=== PATIENT | female | born 1995 | race Hispanic/Latino ===

== ENCOUNTER → 2018-11-27 | Outpatient (REF) | payer OTHER ==
[2018-11-27 23:06] LABS: INFLUENZA A AMPLIFICATION NEGATIVE (NEGATIVE); INFLUENZA B AMPLIFICATION NEGATIVE (NEGATIVE)
== END ==
LOC: M LAB REF 10:21
PROVIDERS: ATTEND Physician Assistant
DX: J11.1 Influenza due to unidentified influenza virus with other respiratory manifestations (principal)

== ENCOUNTER → 2021-06-16 | Outpatient (CLI) | payer OTHER ==
--- NOTE | 2021-06-16 15:40 | REP ---
INDICATION: PREG, GROWTH. COMPARISON: None. TECHNIQUE: Real-time sonographic evaluation of the gravid uterus performed. FINDINGS: Estimated gestational age is32 weeks 0 days, EDC 08/11/2021. Today's measurements indicate appropriate growth. Presentation: Cephalic Placenta anterior to the right, grade 1, without evidence of placenta previa. heart rate is recorded at 141 beats per minute. Amniotic fluid is subjectively normal. The cervix is not well visualized due to shadowing from the cranium. Biometry chart: BPD: 83 mm, 33 weeks 3 days, 70th percentile. HC: 296 mm, 32 weeks 5 days, 61st percentile AC: 273 mm, 31 weeks 3 days, 41st percentile Femur length: 63 mm, 32 weeks 4 days, 59th percentile HC to AC ratio: 1.08, normal range 0.95-1.14. Estimated weight: 1893g, 41st percentile. SD ratio umbilical artery 2.36, normal 1.84-3.87. RI 0.58, normal 0.50-0.75. The visualized osseous structures today include the cranium, upper lip, four-chamber heart, stomach, kidneys, bladder and spine which are all grossly unremarkable. An echogenic focus in the left ventricle of the heart is likely related to chordae tendineae. Structures of the brain, the facial profile and ventricular outflow tracts are not well visualized. IMPRESSION: Viable single intrauterine gestation as above. <Electronically signed by Alejandro Miller > 06/16/21 [id number]
== END ==
LOC: M RAD 14:27
PROVIDERS: ATTEND Registered Nurse
DX: Z36.89 Encounter for other specified antenatal screening (principal); Z3A.32 32 weeks gestation of pregnancy

== ENCOUNTER 2021-07-10 05:49 | Inpatient (IN) | payer OTHER ==
[2021-07-10] VITALS (14 sets, daily range): BP systolic 118–177; BP diastolic 58–84
[~2021-07-10] VITALS: Ht 172.7 cm; Wt 103.1 kg
[2021-07-10] MEDS ORDERED: PRENTAB9 PO (06:05)
[2021-07-10] MEDS ORDERED: SYNT88TA2 PO (06:05)
[2021-07-10] MEDS ORDERED: HOME MED LIST COMPLETE! XX SCH (06:10)
[2021-07-10] MEDS: LR 1,000 ML IV SCH ×2 (06:35→16:09)
[2021-07-10] MEDS ORDERED: OXYTOCIN 30 UNITS IN 0.9% NaCl 500ML IV BAG (J2590) As Ordered ONE (06:45)
[2021-07-10] MEDS ORDERED: LIDOCAINE 1% MDV 20ML VIAL As Ordered ONE (06:48)
[2021-07-10 06:52] LABS: HEMATOCRIT 42.2 % (36.0-47.0); HEMOGLOBIN 13.7 g/dl (12.0-15.5); MEAN CORPUSCULAR HEMOGLOBIN 26.7 pg (27.0-33.0); MEAN CORPUSCULAR HGB CONC 32.5 g/dl (32.0-36.5); MEAN CORPUSCULAR VOLUME 82.3 fl (80.0-96.0); PLATELET COUNT, AUTOMATED 193 10^3/uL (150-450); RED BLOOD COUNT 5.13 10^6/uL (4.00-5.40); WHITE BLOOD COUNT 9.5 10^3/uL (4.0-10.0)
[2021-07-10] MEDS ORDERED: MORPHINE 4 MG/ML 1ML VIAL/SYRINGE (J2270) As Ordered ONE (07:51)
[2021-07-10 08:18] LABS: CORD GAS ABE A -12.5; CORD GAS ABE V -10.5; CORD GAS HCO3 A 17.3 MEQ/L; CORD GAS O2 SAT V 86.1 %; CORD GAS PCO2 A 55.6 mmHg; CORD GAS PCO2 V 42.9 mmHg; CORD GAS PH A 7.112 UNITS; CORD GAS PH V 7.215 UNITS; CORD GAS PO2 A 53.7 mmHg; CORD GAS PO2 V 47.4 mmHg; CORD GAS SBC A 14.7 MEQ/L; CORD GAS SBC V 16.1 MEQ/L; CORD GAS TCO2 A 19.1 MEQ/L; CORD GAS TCO2 V 18.3 MEQ/L
[2021-07-10] MEDS ORDERED: METHYLERGONOVINE MALEATE 0.2 MG/ML VIAL (J2210) IM PRN (08:30)
[2021-07-10] MEDS ORDERED: OXYTOCIN INJ 10 UNITS/ML VIAL (J2590) IV PRN (08:30)
[2021-07-10] MEDS ORDERED: DIBUCAINE 1% OINTMENT 30GM TOP PRN (08:30)
[2021-07-10] MEDS ORDERED: OXYTOCIN DRIP 30 UNITS in IV 1 EA IV PRN ×6 (08:30)
[2021-07-10] MEDS ORDERED: ONDANSETRON 4MG/2ML VIAL IV PRN (08:30)
[2021-07-10] MEDS ORDERED: OXYTOCIN DRIP 30 UNITS in IV 1 EA IV SCH (08:30)
[2021-07-10] MEDS ORDERED: OXYTOCIN INJ 10 UNITS/ML VIAL (J2590) IM PRN (08:30)
[2021-07-10] MEDS ORDERED: LIDOCAINE 1% MDV 20ML VIAL INFIL PRN (08:30)
[2021-07-10] MEDS ORDERED: ACETAMINOPHEN 500 MG TAB PO PRN (08:30)
[2021-07-10] MEDS ORDERED: CARBOPROST TROMETHAMINE 250 MCG/ML AMP IM PRN (08:30)
[2021-07-10] MEDS ORDERED: RHOGAM 300 MCG (1500 IU) INJ (J2790) IM SCH (08:30)
--- NOTE | 2021-07-10 08:35 | HPEPDOC ---
Obstetrical History & Physical General Date of Admission Jul 10, 2021 at 06:21 History of Present Illness 25 YO G1 @ 35+3 Who presents in active labor and precipitously delivered. she was GBS unknown and did not get Penicilin due to delivering precipitously. Past Medical History Allergies Coded Allergies: No Known Allergies (Unverified , 07/10/21) Medications Scheduled Levothyroxine Sodium (Synthroid) 88 Mcg Tablet, 88 MCG PO DAILY No.137/Iron/Folic Acd ( Vitamin Tablet) 1 Each Tablet, 1 TAB PO DAILY Physical Examination Physical Examination GENERAL: Alert and oriented times three. BREAST: . ABDOMEN: Gravid and non-tender to touch. FETUS: Is vertex (VTX) by sterile vaginal examination (SVE), fetus is vertex (VTX) by Sean. HEART RATE: Regular rate and rhythm. LUNGS: Clear to auscultation (CTA). EXTREMITIES: No edema. No clonus. Deep tendon reflexes (DTRs) + . Vital Signs/I&O Vital Signs Date Time Temp Pulse Resp B/P (MAP) Pulse Ox O2 Delivery O2 Flow Rate FiO2 07/10/21 05:59 98.0 Laboratory Data 24H LABS Laboratory Tests 2 07/10/21 06:45: Nucleated Red Blood Cells % (auto) 0.0 07/10/21 07:43: Cord Arterial Blood pH 7.112, Cord Arterial Blood PCO2 55.6, Cord Arterial Blood PO2 53.7, Cord Arterial Blood HCO3 17.3, Cord Arterial Blood Total CO2 19.1, Cord Arterial Blood Base Excess -12.5, Cord Arterial Base Excess (Standard 14.7, Cord Arterial Bld Oxygen Saturation 87.0, Cord Venous Blood pH 7.215, Cord Venous Blood PCO2 42.9, Cord Venous Blood PO2 47.4, Cord Venous Blood HCO3 17.0, Cord Venous Blood Total CO2 18.3, Cord Venous Base Excess (Actual) -10.5, Cord Venous Base Excess (Standard) 16.1, Cord Venous Blood Oxygen Saturation 86.1 CBC/BMP Laboratory Tests 07/10/21 06:45 Assessment/Plan Assessment 25 YO G1 @ 35+3 Who presents in active labor and precipitously delivered. she was GBS unknown and did not get Penicilin due to delivering precipitously. Plan Transfer to maternity unit for care. CHANNING GUSTAFSON MD Jul 10, 2021 08:35
--- NOTE | 2021-07-10 08:41 | DNPDOC ---
[facility] Delivery Note Delivery Note DATE OF DELIVERY: [] PREDELIVERY DIAGNOSIS: 35-3/7 weeks' gestation and labor. POST DELIVERY DIAGNOSIS: Delivered. PROCEDURE: Spontaneous vaginal delivery CUT OFF SAWYER: Dr. Channing Gustafson ANESTHESIA: none ESTIMATED BLOOD LOSS: 300 mL. FINDINGS: 5 pound 0 ounce, 2260g female , Score 9/9, left foot cord, tight DELIVERY SUMMARY: She progressed to C/C/+2 and with good maternal effort delivered a viable . The infants head delivered OA and the head was allowed to spontaneously restitute SHARI. anterior shoulders delivered with gentle downward traction followed by posterior shoulder and corpus without difficulty. tight left foot cord noted. . Normal 3-vessel cord clamped x 2 and cut by FOB after 1 minute of delayed cord clamping. Spontaneous cry noted. I nfant placed on maternal abdomen for [id number] Cord blood obtained. Placenta delivered spontaneously and inspection of the placenta demonstrated that it was intact. The cord insertion appeared normal. The uterus was cleared of all clots and debris. Fundal massage until firm. 30 units of Pitocin administered per protocol and the patient required no additional uterotonics. Inspection of cervix, perineum, and vaginal wall revealed a periurethral laceration that was repaired with multiple figure of eight stitches and a hymenal ring tag that was repaired with a figure of eight stitch. . Repeat uterine examination noted uterine tone to be adequate and firm. Mom maribel stayed in L&D in hemodynamic stable condition upon my departure, Baby was taken to the NICU for prematurity per NICU Protocol. Sponge, lap and needle count correct x 2. [facility] [employer] Staff CHANNING GUSTAFSON MD Jul 10, 2021 08:41
[2021-07-10] MEDS ORDERED: MORPHINE 4 MG/ML 1ML VIAL/SYRINGE (J2270) IV ONE (09:40)
[2021-07-10] MEDS: IBUPROFEN 800 MG TAB PO PRN ×2 (10:15→20:20)
[2021-07-10] MEDS: PRENATAL VITAMINS CHEWABLE TABLET PO SCH (10:15)
[2021-07-10] MEDS: DOCUSATE SODIUM 100MG CAPSULE PO SCH ×2 (10:18→20:19)
[2021-07-10] MEDS: FERROUS SULFATE 325MG TAB PO SCH (11:57)
[2021-07-10] MEDS: LEVOTHYROXINE 88MCG TABLET (0.088 MG) PO SCH (16:08)
[2021-07-11] MEDS: LEVOTHYROXINE 88MCG TABLET (0.088 MG) PO SCH (05:52)
[2021-07-11 06:00] VITALS: BP 130/71
--- NOTE | 2021-07-11 07:25 | IPNPDOC ---
Progress Note Date of Service: Jul 11, 2021 Day#: 1 Progress Note SUBJECT:25 to PPD0 S/P Precipitous delivery at 35w3d of 5 pound 0 ounce, 2260g female infant, Score 9/9, left foot cord, tight, doing well this morning. She has been ambulating, voiding spontaneously without issue and tolerating regular diet. Breast feeding without issue. Reports lochia is like a normal period. baby was observed for a few hhours in the NICU and has not returned to nursery with parents. OBJECTIVE: VITAL SIGNS: Within normal limits, afebrile. Alert and oriented times three. Breath sounds clear to auscultation. Heart rate: Regular rate and rhythm, no murmurs, rubs or gallops. Abdomen: Fundus firm at U-2. Soft, NTTP. [Minimal] lochia. ASSESSMENT: 27 to PPD0 S/P Precipitous delivery at 35w3d of 5 pound 0 ounce, 2260g female , Score 9/9, left foot cord, tight, doing well this morning. Vitals within normal limits, afebrile, hemodynamically stable with no evidence of infection. PLAN: 1. Discharge to home tomorrow 2. Tylenol and Motrin for pain. 3. Encourage breast feeding and ambulation. 4. paragard for contraception for now 5. Routine PP visit in 6 weeks in clinic. 6. Discussed return precautions at length. VS, I&O, 24H, Fishbone Vital Signs/I&O Vital Signs Date Time Temp Pulse Resp B/P (MAP) Pulse Ox O2 Delivery O2 Flow Rate FiO2 07/10/21 18:04 99.0 80 20 118/58 (78) 99 07/10/21 09:57 Room Air I&O- Last 24 Hours up to 6 AM 07/11/21 06:00 Intake Total 1860 ml Output Total 2100 ml Balance -240 ml Laboratory Data 24H LABS Laboratory Tests 2 07/10/21 06:45: Nucleated Red Blood Cells % (auto) 0.0 07/10/21 07:43: Cord Arterial Blood pH 7.112, Cord Arterial Blood PCO2 55.6, Cord Arterial Blood PO2 53.7, Cord Arterial Blood HCO3 17.3, Cord Arterial Blood Total CO2 19.1, Cord Arterial Blood Base Excess -12.5, Cord Arterial Base Excess (Standard 14.7, Cord Arterial Bld Oxygen Saturation 87.0, Cord Venous Blood pH 7.215, Cord Venous Blood PCO2 42.9, Cord Venous Blood PO2 47.4, Cord Venous Blood HCO3 17.0, Cord Venous Blood Total CO2 18.3, Cord Venous Base Excess (Actual) -10.5, Cord Venous Base Excess (Standard) 16.1, Cord Venous Blood Oxygen Saturation 86.1 07/10/21 12:15: Serology Scanned Report Hepatitis B Testing CBC/BMP Laboratory Tests 07/10/21 06:45 CHANNING GUSTAFSON MD Jul 11, 2021 6:09 am
[2021-07-11] MEDS: FERROUS SULFATE 325MG TAB PO SCH (08:35)
[2021-07-11] MEDS: PRENATAL VITAMINS CHEWABLE TABLET PO SCH (08:35)
[2021-07-11] MEDS: DOCUSATE SODIUM 100MG CAPSULE PO SCH ×2 (08:35→20:02)
[2021-07-11] MEDS: IBUPROFEN 800 MG TAB PO PRN ×2 (08:37→20:02)
[2021-07-11 18:00] VITALS: BP 145/88
[2021-07-12] MEDS: LEVOTHYROXINE 88MCG TABLET (0.088 MG) PO SCH (05:52)
[2021-07-12 06:00] VITALS: BP 127/74
--- NOTE | 2021-07-12 07:30 | OBDS ---
[facility] Obstetrical Discharge Sum. Obstetrical Discharge Summary Date: Jul 12, 2021 Labor DATE OF DELIVERY: [] PREDELIVERY DIAGNOSIS: 35-3/7 weeks' gestation and labor. POST DELIVERY DIAGNOSIS: Delivered. PROCEDURE: Spontaneous vaginal delivery ADVERTISING OPERATIONS COORDINATOR: Dr. Donna Edward ANESTHESIA: none ESTIMATED BLOOD LOSS: 300 mL. FINDINGS: 5 pound 0 ounce, 2260g female , Score 9/9, left foot cord, tight DELIVERY SUMMARY: She progressed to C/C/+2 and with good maternal effort delivered a viable infant. The infants head delivered OA and the head was allowed to spontaneously restitute SHARI. anterior shoulders delivered with gentle downward traction followed by posterior shoulder and corpus without difficulty. tight left foot cord noted. . Normal 3-vessel cord clamped x 2 and cut by FOB after 1 minute of delayed cord clamping. Spontaneous cry noted. placed on maternal abdomen for [id number] Cord blood obtained. Placenta delivered spontaneously and inspection of the placenta demonstrated that it was intact. The cord insertion appeared normal. The uterus was cleared of all clots and debris. Fundal massage until firm. 30 units of Pitocin administered per protocol and the patient required no additional uterotonics. Inspection of cervix, perineum, and vaginal wall revealed a periurethral laceration that was repaired with multiple figure of eight stitches and a hymenal ring tag that was repaired with a figure of eight stitch. . Repeat uterine examination noted uterine tone to be adequate and firm. Mom maribel stayed in L&D in hemodynamic stable condition upon my departure, Baby was taken to the NICU for prematurity per NICU Protocol. Sponge, lap and needle count correct x 2. Exam on day of discharge: SUBJECT:27 to PPD1 S/P Precipitous delivery at 35w3d of 5 pound 0 ounce, 2260g female , Score 9/9, left foot cord, tight, doing well this morning. She has been ambulating, voiding spontaneously without issue and tolerating regular diet. Breast feeding without issue. Reports lochia is like a normal period. baby was observed for a few hours in the NICU and has returned to nursery with parents. OBJECTIVE: VITAL SIGNS: Within normal limits, afebrile. Alert and oriented times three. normal work of breathing Heart rate: Regular rate and rhythm, no murmurs, rubs or gallops. Abdomen: Fundus firm at U-2. Soft, NTTP. Vital Signs Date Time Temp Pulse Resp B/P (MAP) Pulse Ox O2 Delivery O2 Flow Rate FiO2 07/12/21 06:00 98.7 76 18 127/74 (91) 97 07/11/21 18:00 97.7 88 18 145/88 (107) 99 Room Air Intake & Output 07/12/21 06:00 Intake Total 360 ml Balance 360 ml Current Medications Medications (Trade) Dose Ordered Sig/Penelope Route PRN Reason Start Time Stop Time Status Last Admin Dose Admin Docusate Sodium (Colace) 100 mg BID PO 07/10/21 09:00 07/11/21 20:02 100 MG Ferrous Sulfate (Ferrous Sulfate) 325 mg DAILY PO 07/10/21 09:00 07/11/21 08:35 325 MG Ibuprofen (Advil) 800 mg Q8HP PRN PO PAIN LEVEL 6-10 07/10/21 08:30 07/11/21 20:02 800 MG Levothyroxine Sodium (Synthroid) 88 mcg DAILY@06 PO 07/10/21 11:00 07/12/21 05:52 88 MCG Prenat Multivit/ Surveillance Director/Iron/Folic Ac ( Vitamins) 1 tab DAILY PO 07/10/21 09:00 07/11/21 08:35 1 TAB ASSESSMENT: 25 to PPD1 S/P Precipitous delivery at 35w3d of 5 pound 0 ounce, 2260g female , Score 9/9, left foot cord, tight, doing well this morning. Vitals within normal limits, afebrile, hemodynamically stable with no evidence of infection. PLAN: 1. Discharge to home today 2. Tylenol and Motrin for pain. 3. Encourage breast feeding and ambulation. 4. paragard for contraception at 6wk visit 5. Routine PP visit in 6 weeks in clinic. 6. Discussed return precautions at length. A/P, Post Course List any complications Admission diagnosis: labor Discharge diagnosis: uncomplicated precipitous vaginal delivery Condition at Discharge: stable Discharge Instructions: home Activity: No heavy lifting and strict pelvic rest x6wks Diet: regular Medications: tylenol and motrin prn pain Follow-up: call to schedule 6wk visit GABRIEL HUI M.D. Jul 12, 2021 07:30
[2021-07-12] MEDS: DOCUSATE SODIUM 100MG CAPSULE PO SCH (08:38)
[2021-07-12] MEDS: PRENATAL VITAMINS CHEWABLE TABLET PO SCH (08:38)
[2021-07-12] MEDS: FERROUS SULFATE 325MG TAB PO SCH (08:38)
== END 2021-07-12 12:55 | disposition home or self-care (01) | DRG 807 ==
LOC: M LDO 05:49 → M LDI 06:21 → M OBS 11:59
PROVIDERS: ADMIT Obstetrics & Gynecology; ATTEND Obstetrics & Gynecology
PROC: 10E0XZZ Delivery of Products of Conception, External Approach (ICD-10-PCS; principal; 2021-07-10)
PROC: 0UQMXZZ Repair Vulva, External Approach (ICD-10-PCS; 2021-07-10)
DX: O60.14X0 Preterm labor third trimester with preterm delivery third trimester, not applicable or unspecified (principal); Z37.0 Single live birth; Z3A.35 35 weeks gestation of pregnancy; O62.3 Precipitate labor; O69.2XX0 Labor and delivery complicated by other cord entanglement, with compression, not applicable or unspecified; O71.82 Other specified trauma to perineum and vulva